=== PATIENT | female | born 1940 | race Caucasian/White ===

== ENCOUNTER 2023-06-11 12:41 | Outpatient (CLI) | payer OTHER | END 2023-06-11 12:42 | disposition home or self-care (01) | LOC: CSHCT 12:41 | PROVIDERS: ATTEND Surgery | DX: S06.5XAA Traumatic subdural hemorrhage with loss of consciousness status unknown, initial encounter (principal); R94.02 Abnormal brain scan | CPT/HCPCS: 70450 ==